=== PATIENT | female | born 1990 | race Asian ===

== ENCOUNTER 2023-11-06 11:33 | Outpatient (AMB) | payer OTHER, SELFPAY ==
--- NOTE | 2023-11-06 11:44 | A.OFFVIS_ITS ---
Intake Vital Signs 11/06/23 11:47 Height 5 ft 3 in Weight 170 lb 3.15 oz BMI 30.1 BP 136/87 Blood Pressure Location Lt brachial Position Sitting Pulse 85 Pulse Source Pulse Oximeter Intake Visit Reasons: Constipation Intake Note: Pt presents to the office today for a new patient visit for constipation. Pt states she has been having an issue with constipation for many years. Pt states she wont go for about 8 days but also is complaining of hemorrhoids. Pt states she has bleeding when she wipes and states this has been going on since she has been a teen. Pt denies any N/V/D. Pt states she does have abdominal pain when she is unable to go to the bathroom. Allergies No Known Allergies Allergy (Verified 11/06/23 11:48) HPI Constipation HPI Details 33-year-old female with past medical his tory of depression, constipation, obesity is here today for initial consultation. Patient was sent to us by her PCP. Patient reports that since she remembers she has been constipated. She has been having trouble moving her bowels since childhood. Patient tried multiple different medications and has not been successful. Patient's PCP send her script for Linzess. Patient reports that she is not taking it. Patient reports that after bowel movement she will have blood. Sometimes no BM for several days. Patient admits that she could be drinking more water. Diet could more fiber. Patient denies any abdominal pain or disco mfort. Denies any nausea or vomiting. Denies any dyspepsia, dysphagia or odynophagia. [facility] Medical History (Updated 11/26/23 @ 19:42 by Selene Minor [facility]) Depression Obesity Constipation Family History (Updated 11/06/23 @ 11:50 by Kristin Napoles MA) Father Diabetes Social History (Updated 11/06/23 @ 11:49 by Kristin Napoles MA) Household Members: None Housing: House Alcohol intake: current Alcohol intake frequency: a few times a week Alcohol type: hard liquor Patient Tobacco Use Status: Never used Tobacco e-Cigarette/Vaping Use: Never Used Review of Systems Const Denies weight gain and Denies weight loss ENT Reports no additional complaints, Denies dysphagia and Denies odynophagia Card Reports no additional complaints Resp Reports no additional complaints GI Denies abdominal pain, Denies belching, Denies melena, Denies bloating, Reports hematochezia (When wiping), Denies change in bowel habits, Reports constipation, Denies dysphagia, Denies excessive flatus, Denies dyspepsia, Denies heartburn, Denies diarrhea, Denies loose stools, Denies nausea, Denies odynophagia and Denies vomiting Reports no additional complaints Musc Reports no additional complaints Neuro Reports no additional complaints Psych Reports no additional complaints Endo Reports no additional complaints Physical Exam Vital Signs: Last Vital Signs Pulse 85 11/06/23 11:47 BP 136/87 11/06/23 11:47 BMI result Body Mass Index 30.1 Const General: healthy appearing, no acute distress and well developed Nutritional Appearance: obese Orientation/consciousness: patient oriented x3 HEENT Head: Yes normal to inspection, Yes normocephalic and Yes atraumatic Face and sinus: Yes normal facial exam Mouth: Normal oral and palatal mucosa present Throat: Yes posterior oropharynx normal, Yes tonsils normal and Yes uvula midline Eyes General: appearance normal, both eyes and all related structures Neck Neck: Yes normal visual inspection, Yes full ROM and Yes trachea midline Thyroid: Thyroid normal Resp Effort & Inspection: normal respiratory effort, able to speak in complete sentences, no tracheal deviation and symmetric chest movement Auscultation: clear to auscultation bilaterally Cardio Rate: regular rate GI Inspection: Yes normal to inspection, No distended and Yes obesity Palpation (GI): Soft to palpation, not firm, nontender and No hepatosplenomegaly present Auscultation: normal bowel sounds General: Yes no CVA tenderness Back/Spine/Pelvis Back: no CVA tenderness Skin General skin exam: elasticity normal, turgor normal and dry skin Neuro General: patient oriented x3 Psych Appearance: grossly normal Mental Status: mental status grossly normal Assessment & Plan Assessment & Plan (1) Constipation: Code(s): K59.00 - Constipation, unspecified Qualifiers: Constipation type: chronic idiopathic constipation Qualified Code(s): K59.04 - Chronic idiopathic constipation (2) Rectal bleed: Code(s): K62.5 - Hemorrhage of anus and rectum Plan Patient was encouraged to increase fluid intake and activity to promote better bowel motility. Patient will try food that is high in fiber. Patient will try to take Senokot 2 tablets in the evening. Not consistent with bowel regiment in the past even though she has been struggling with constipation for a long time. Will check thyroid study, vitamin B12, folate, vitamin-D level. Will send script for Proctosol. She will return in 5 weeks, sooner on as needed basis. Patient is agreeable to this plan and verbalizes understanding of instructions. She was given the opportunity to ask questions and all questions answered. Thank you for allowing me to participate in her care Orders: Orders Vitamin B12 and Folate 11/06/23 R19.7 - Diarrhea, unspecified Vitamin D 25-OH (D2 and D3) 11/06/23 E55.9 - Vitamin D deficiency, unspecified TSH reflex Free T4 11/06/23 K59.00 - Constipation, unspecified Medications: New sennosides (Natural Senna Laxative) 17.2 mg (2 x 8.6 mg) PO BEDTIME 60 tabs 1RF constipation K59.00 - Constipation, unspecified hydrocortisone 2.5% (Proctosol HC) 1 appl OR BID-QID PRN 30 grams 2RF hemorrhoids K64.9 - Unspecified hemorrhoids Coding Level of Care Code New Pt Level 3 (71719) Diagnoses Chronic idiopathic constipation K59.04 Constipation type: chronic idiopathic constipation Rectal bleed K62.5 Time Spent (min) 40 Comment 30 minutes spent with patient and additional 10 minutes spent reviewing her records
[2023-11-06 11:47] VITALS: BP 136/87; PULSE 85; BMI 30.1
== END 2023-11-06 13:11 | disposition home or self-care (01) ==
PROVIDERS: PCP Hospitalist; Visit Provider Nurse Practitioner Family
DX: K59.04 Chronic idiopathic constipation (principal); K62.5 Hemorrhage of anus and rectum
CPT/HCPCS: 99203

== ENCOUNTER 2023-11-06 11:33 | Outpatient (REF) | payer OTHER, SELFPAY ==
[2023-11-06 13:42] LABS: TSH reflex Free T4 1.82 uIU/mL (0.32-4.0)
[2023-11-06 13:55] LABS: Folate 11.7 ng/mL (> or = 4.0); Vitamin B12 575 pg/mL (200-900)
[2023-11-10 18:35] LABS: Vitamin D 25-OH, D2 <4 ng/mL; Vitamin D 25-OH, D3 20 ng/mL; Vitamin D 25-OH, Total 20 ng/mL (30-100)
== END 2023-11-06 11:34 | disposition home or self-care (01) ==
LOC: HO.LAB 11:33
PROVIDERS: PCP Hospitalist; Visit Provider Nurse Practitioner Family
DX: R19.7 Diarrhea, unspecified (principal); E55.9 Vitamin D deficiency, unspecified; K59.04 Chronic idiopathic constipation; K62.5 Hemorrhage of anus and rectum
CPT/HCPCS: 36415; 82306; 82607; 82746; 84443; 99202